=== PATIENT | male | born 1970 | race Hispanic/Latino ===

== ENCOUNTER 2017-09-24 21:49 | Inpatient (IN) | payer MEDICAID ==
[2017-09-24 22:19] LABS: BASO % 0.4 % (0.0-2.0); EOS # 0.2 K/uL (0.0-0.7); LYMPH % 36.7 % (20.0-40.0); MEAN CORPUSCULAR HEMOGLOBIN 31.3 pg (27.0-31.0); MEAN CORPUSCULAR HGB CONC 34.4 g/dL (33.0-37.0); MEAN PLATELET VOLUME 7.2 fL (7.2-11.7); MONO # 0.5 K/uL (0.0-0.8); MONO % 6.3 % (0.0-10.0); NEUT # 4.5 K/uL (1.8-7.0); NEUT % 54.6 % (50.0-75.0); NRBC % 0.1 % (0.0-2.0); RBC 4.17 Mil/uL (4.40-5.90); RED CELL DISTRIBUTION WIDTH 13.6 % (11.5-14.5); WHITE BLOOD COUNT 8.2 K/uL (4.8-10.8)
[2017-09-24 22:22] LABS: URINE BILIRUBIN NEGATIVE (NEGATIVE); URINE BLOOD NEGATIVE (NEGATIVE); URINE CLARITY Clear (Clear); URINE COLOR Yellow (YELLOW); URINE GLUCOSE (UA) NORMAL (Normal); URINE LEUKOCYTE ESTERASE NEG Leu/uL (Negative); URINE PROTEIN NEGATIVE (NEGATIVE); URINE UROBILINOGEN NORMAL mg/dL (0.2-1.0)
[2017-09-24 22:31] LABS: ALB/GLOB RATIO 1.4 (1.0-2.1); ALBUMIN 4.4 g/dL (3.5-5.0); ALT/SGPT 26 U/L (21-72); AST/SGOT 23 U/L (17-59); BLOOD UREA NITROGEN 17 mg/dL (9-20); CALCIUM 9.4 mg/dl (8.6-10.4); GFR AFRICAN-AMERICAN > 60; GFR NON-AFRICAN AMERICAN > 60
[2017-09-24 22:36] LABS: BARBITURATES, UR NEGATIVE (NEGATIVE); BENZODIAZEPINES, UR POSITIVE (NEGATIVE); OPIATES, UR POSITIVE (NEGATIVE); PHENCYCLIDINE, UR NEGATIVE (NEGATIVE)
--- NOTE | 2017-09-24 22:52 | C.PDOC ---
History Of Present Illness 47 year old male presents to the ED requesting methadone detox. Patient was prescreened prior to coming to the ED, patient states his last use of methadone was yesterday. Patient denies SI/HI, hallucinations, CP, SOB. Time Seen by Provider: 09/24/17 22:00 Chief Complaint (Nursing): Psychiatric Evaluation History Per: Patient History/Exam Limitations: no limitations Onset/Duration Of Symptoms: Days Current Symptoms Are (Timing): Still Present Suicide/Self Injury Attempted (Context): None Modifying Factor(s): Other (Methadone) Associated Symptoms: denies: Depression, Suicidal Thoughts, Suicidal Plan Involuntary Hold By: None Recent travel outside of the [place]: No Additional History Per: Patient Past Medical History Reviewed: Historical Data, Nursing Documentation, Vital Signs Vital Signs: Last Vital Signs Temp 98.2 F 09/25/17 20:00 Pulse 62 09/25/17 20:00 Resp 18 09/25/17 20:00 BP 118/72 09/25/17 20:00 Pulse Ox 97 09/25/17 20:00 - Medical History PMH: No Chronic Diseases Surgical History: No Surg Hx Family History: States: Unknown Family Hx - Social History Hx Alcohol Use: Yes Hx Substance Use: Yes (METHADONE) - Immunization History Hx Tetanus Toxoid Vaccination: Yes Hx Influenza Vaccination: No Review Of Systems Constitutional: Negative for: Fever, Chills Cardiovascular: Negative for: Chest Pain, Palpitations Respiratory: Negative for: Cough, Shortness of Breath Gastrointestinal: Negative for: Nausea, Vomiting Skin: Negative for: Rash Psych: Negative for: Depression, Suicidal ideation Physical Exam - Physical Exam Appears: Non-toxic, No Acute Distress Skin: Normal Color, Warm, Dry Head: Atraumatic, Normacephalic Eye(s): bilateral: Normal Inspection Oral Mucosa: Moist Neck: Normal ROM, Supple Chest: Symmetrical Cardiovascular: Rhythm Regular Respiratory: Normal Breath Sounds, No Rales, No Rhonchi, No Wheezing Gastrointestinal/Abdominal: Soft, No Tenderness, No Guarding, No Rebound Extremity: Normal ROM, No Tenderness, No Swelling Neurological/Psych: Oriented x3, Normal Speech Gait: Steady ED Course And Treatment - Laboratory Results Result Diagrams: 09/24/17 22:16 09/24/17 22:16 O2 Sat by Pulse Oximetry: 95 (ON RA) Pulse Ox Interpretation: Normal Medical Decision Making Medical Decision Making: Impression: methadone detox Plan: * Labs * UA * Crisis Disposition Doctor Will See Patient In The: Hospital Counseled Patient/Family Regarding: Studies Performed, Diagnosis - Disposition Disposition: HOSPITALIZED Disposition Time: 20:00 Condition: GOOD - Clinical Impression Clinical Impression: Polysubstance dependence including opioid type drug, episodic abuse - Scribe Statement The provider has reviewed the documentation as recorded by the Scribe Dayne Hadley All medical record entries made by the Scribe were at my direction and personally dictated by me. I have reviewed the chart and agree that the record accurately reflects my personal performance of the history, physical exam, medical decision making, and the department course for this patient. I have also personally directed, reviewed, and agree with the discharge instructions and disposition.
--- NOTE | 2017-09-25 00:27 | C.PDOC ---
Time Seen by Provider: 09/24/17 22:00 Chief Complaint (Nursing): Psychiatric Evaluation Past Medical History Vital Signs: Last Vital Signs Temp 98.6 F 09/24/17 21:53 Pulse 87 09/24/17 21:53 Resp 18 09/24/17 21:53 BP 131/85 09/24/17 21:53 Pulse Ox 95 09/24/17 21:53 - Social History Hx Alcohol Use: Yes Hx Substance Use: Yes (METHADONE) - Immunization History Hx Tetanus Toxoid Vaccination: Yes Hx Influenza Vaccination: No ED Course And Treatment - Laboratory Results Lab Interpretation: Abnormal (+ opiates, + THC, + methadone) O2 Sat by Pulse Oximetry: 95 - Physician Consult Information Outcome Of Conversation: 0030: d/w Crisis, ok to admit to Detox Medical Decision Making Medical Decision Making: polysubstance abuse Disposition Doctor Will See Patient In The: Hospital Counseled Patient/Family Regarding: Studies Performed, Diagnosis - Disposition Disposition: HOSPITALIZED Disposition Time: 00:28 Condition: GOOD - Clinical Impression Clinical Impression: Polysubstance dependence including opioid type drug, episodic abuse
--- NOTE | 2017-09-25 09:49 | PCM.BM ---
<Jonathan Schwartz - Last Filed: 09/25/17 09:48> Treatment assets and liabiliti Patient Assests: cooperative, motivated, ADL independent, good support system, negotiates basic needs, good interpersonal skills, strong chun Patient Liabilities: substance abuse - Milieu Protocol Maintain good personal hygiene: daily Encourage regular showers, daily Assist patient to perform ADL's, every shift Remind patient to perform daily oral care Maintain personal safety: every shift Educate patient to report safety concerns to staff, every shift Monitor environment for contraband/sharps Medication safety: Monitor for expected outcome, potential side effects: every shift, Assess barriers to learning: every shift, Assess readiness for medication education: every shift <Ana Santillan - Last Filed: 09/26/17 22:36> - Diagnosis (1) Opioid use disorder, severe, dependence Status: Acute Interventions: 09/26/17 22:36 * Assess 7x/week regarding severity of withdrawal * Educate regarding risks, benefits, side effects and alternatives of medications * Use Motivational Interviewing for abstinence * Use CBT for relapse prevention * Medication management for withdrawal symptoms * Encourage medication assisted treatment *
--- NOTE | 2017-09-25 10:27 | PCM.PSYCH ---
Initial Psychiatric Evaluation - Initial Psychiatric Evaluation Type of Admission: Voluntary Legal Status: Capacity Chief Complaint (in patient's own words): I need to stay sober History of Present Illness and Precipitating Events: Pt admitted for the detox treatment from methadone. Pt reported abusing 70mg of Methadone daily in 2 divided doses for the last two years. Pt reportedly sustained an injury to his wrist last year and was prescribed pain medication during an ED visit. Pt was later able to obtain Rx from his PCP who suspected that patient was abusing pain management medications that were later discontinued. Pt reported abusing xanax 1 mg po BID for last 2 months. He reproted methadone, and percocets on a regular basis for the last several years. He reported that he has opioid withdrawal symptoms ranging from headache,, nausea, vomiting, stomach cramp, hot and cold sweats, not able to function, and body aches. Pt stated that he smokes 1ppd for last 25 years. He has nicotine craving and ask for nicotine patch. Pt denied depressive, manic and anxiety symptoms. Social Hx: He is , has 3 children who are living with their mother. He works for [employer]. Current Medications: Active Medications Generic Name Dose Route Start Last Admin Trade Name Freq PRN Reason Stop Dose Admin Clonidine HCl 0.1 mg 09/25/17 00:33 Catapres PO Q8 PRN COWS Score More or Equal to 5 Ibuprofen 600 mg 09/25/17 00:33 Motrin Tab PO Q8H PRN Pain, moderate (4-7) Loperamide HCl 2 mg 09/25/17 00:33 Imodium PO Q8 PRN Diarrhea Multivitamins 1 tab 09/25/17 10:00 Hexavitamin PO DAILY HEIDI Ondansetron HCl 4 mg 09/25/17 00:33 Zofran Tab PO Q8 PRN Nausea/Vomiting Trazodone HCl 50 mg 09/25/17 00:34 Desyrel PO HS PRN Insomnia Past Psychiatric History - Past Psychiatric History Previous Treatment History: Inpatient At [facility] hospital: [facility] Duration: few days around 10 years ago Nature of Treatment: detox History of Abuse: denied History of ETOH/Drug Use: please see HPI. Pt denied using heroin, History of Family Illness: father was using heroin in past. He is clean for 15 years and working as Pertinent Medical Hx (Current Medical&Sleep Prob, Allergies): Allergies Allergy/AdvReac Type Severity Reaction Status Date / Time No Known Allergies Allergy Verified 09/24/17 21:58 No Known Home Med 09/24/17 Review of Systems - Review of Systems All systems: reviewed and no additional remarkable complaints except (HPI) Mental Status Examination - Personal Presentation Personal Presentation: Looks stated age, Dressed appropriate to season - Affect Affect: Constricted - Motor Activity Motor Activity: Calm - Reliability in Providing Information Reliability in Providing Information: Good - Speech Speech: Organized - Mood Mood: Anxious - Formal Thought Process Formal Thought Process: No Impairment - Hallucinations/Delusions Hallucinations: Other (denied) Delusions: Other (denied) - Obsessions/Compulsions Obsessions: None Compulsions: None - Cognitive Functions Orientation: Person, Place, Situation, Time Sensorium: Alert Attention/Concentration: Attentive Abstract Thinking: [place] Estimate of Intelligence: Average Judgement: Imparied, as evidence by: Lack of insight into illness, Intact, as evidence by: Good judgement Memory: Recent intact, as evidence by: Ability to recall events of the day - Risk Risk: Withdrawal - Strength & Assets Inventory Strength & Assets Inventory: Intelligence, Family support, Education, Employment status, Employment history, Skills, Life experience, Cooperative - Limitations Limitations: Other (chronic substance abuse) DSM 5 DX - DSM 5 DSM 5 Diagnosis: Opioid use disorder, severe, dependence Opioid withdrawal sedative/hypnotic use disorder, dependence Sedative/ hypnotic withdrawal - Recommended/Plan of Treatment Treatment Recommendations and Plan of Treatment: Librium detox Gabapentin for augmentation As needed meds and vitamins As needed meds for opioid withdrawal symptoms Attend groups and activities [place] for abstinence and CBT for relapse prevention Support and psychoeducation Consider and encourage MAT Refer to after care 33 min Projected ELOS: 5 days Prognosis: good Discharge Plan and Discharge Criteria: refer to after care plan
[2017-09-25] MEDS: Multiple Vitamins Tab PO SCH (11:00)
[2017-09-26] MEDS: Multiple Vitamins Tab PO SCH (09:30)
--- NOTE | 2017-09-26 13:42 | PCM.PYCHPN ---
Psychiatric Progress Note - Psychiatric Progress Note Patient seen today, length of contact: 19 min Patient Chief Complaint: "Not good" Problems Identified/Issues Discussed: The pt is seen, chart reviewed, case discussed with staff. The pt is compliant with medications and reports no side-effects. Symptoms are improving but needs more time to stabilize. After care discussed, support and psychoeducation given. Medication Change: Yes (detox changes daily) Medical Record Reviewed: Yes Mental Status Examination - Cognitive Function Orientation: Person, Place, Situation, Time Memory: Intact Attention: WNL Concentration: WNL Association: WNL Fund of Knowledge: WNL - Mood Mood: Anxious - Affect Affect: Constricted - Speech Speech: Appropriate - Formal Thought Process Formal Thought Process: No Impairment - Suicidal Ideation Suicidal Ideation: No - Homicidal Ideation Homicidal Ideation: No Goal/Treatment Plan - Goal/Treatment Plan Need for Continued Stay: Discharge may exacerbated symptoms, Severe functional impairment Progress Toward Problem(s) and Goals/Treatment Plan: Methadone detox As needed medications Gabapentin for augmentation if needed All risks, benefits and alternatives of medications, including no medications, discussed and the patient understood and agreed. Attend groups and activities Supportive therapy and psychoeducation [place] for abstinence CBT for relapse prevention Encourage MAT Refer to rehab or IOP Attend self-help groups as well [place] for smoking cessation and patch if needed
[2017-09-27] MEDS: Multiple Vitamins Tab PO SCH (09:42)
--- NOTE | 2017-09-27 17:33 | PCM.PYCHPN ---
Psychiatric Progress Note - Psychiatric Progress Note Patient seen today, length of contact: 15 minutes Patient Chief Complaint: I'm feeling much better. Problems Identified/Issues Discussed: Patient seen, chart reviewed, case discussed with the staff. Issues related to illness and treatment were discussed with the patient and staff. Reported compliant with treatment with no adverse affects. Tolerating treatment very well. Calm and cooperative. Reported feeling better. Status time of evaluation, patient was awake alert oriented 3, had no delusions , no auditory or visual hallucinations, no suicidal ideations or homicidal ideations. Diagnostic Results: Reviewed DSM 5 Symptoms Update: Some improvement with treatment Medication Change: No Medical Record Reviewed: Yes Mental Status Examination - Cognitive Function Orientation: Person, Place, Situation, Time Memory: Intact Attention: WNL Concentration: WNL Association: WN Fund of Knowledge: [facility] Decription of patient's judgement and insights: Fair - Mood Mood: Anxious (Much less than before) - Affect Affect: Other (Appropriate) - Speech Speech: Appropriate - Formal Thought Process Formal Thought Process: No Impairment Psychotic Thoughts and Behaviors: None - Suicidal Ideation Suicidal Ideation: No - Homicidal Ideation Homicidal Ideation: No Goal/Treatment Plan - Goal/Treatment Plan Need for Continued Stay: Remain at risks for inpatient hospitalization, Discharge may exacerbated symptoms, Severe functional impairment Progress Toward Problem(s) and Goals/Treatment Plan: Patient education. Supportive therapy. CBT for relapse prevention [place] for abstinence Continue treatment as before. Estimated Date of D/C: 10/03/17 - Smoking Cessation Smoking Cessation Initiated: Yes
[2017-09-28] MEDS: Multiple Vitamins Tab PO SCH (09:35)
--- NOTE | 2017-09-28 10:32 | PCM.PYCHPN ---
Psychiatric Progress Note - Psychiatric Progress Note Patient seen today, length of contact: 15 minutes Patient Chief Complaint: I'm feeling better Problems Identified/Issues Discussed: Pt was seen and evaluated. Chart reviewed and nurse inpt received. Pt reported he has some shakes and he is feeling nervous. He had no new complaints. He needs more time to stabilize. He is eating sleeping fine. Pt is compliant with medication and denied s/e Medication Change: Yes (medication taper daily) Medical Record Reviewed: Yes Mental Status Examination - Cognitive Function Orientation: Person, Place, Situation, Time Memory: Intact Attention: WNL Concentration: WNL Association: [facility] Fund of Knowledge: [facility] Decription of patient's judgement and insights: Good/good - Mood Mood: Anxious (Much less than before) - Affect Affect: Constricted - Speech Speech: Appropriate - Formal Thought Process Formal Thought Process: No Impairment Psychotic Thoughts and Behaviors: denied - Suicidal Ideation Suicidal Ideation: No Plan: denied - Homicidal Ideation Homicidal Ideation: No Plan: denied Goal/Treatment Plan - Goal/Treatment Plan Need for Continued Stay: Remain at risks for inpatient hospitalization, Discharge may exacerbated symptoms, Severe functional impairment Progress Toward Problem(s) and Goals/Treatment Plan: Librium detox Gabapentin for augmentation As needed meds and vitamins As needed meds for opioid withdrawal symptoms Attend groups and activities [place] for abstinence and CBT for relapse prevention Support and psychoeducation Consider and encourage MAT Refer to after care Estimated Date of D/C: 10/03/17 - Smoking Cessation Smoking Cessation Initiated: Yes
[2017-09-29] MEDS: Multiple Vitamins Tab PO SCH (09:19)
--- NOTE | 2017-09-29 14:38 | PCM.PYCHPN ---
Psychiatric Progress Note - Psychiatric Progress Note Patient seen today, length of contact: 15 minutes Patient Chief Complaint: I'm feeling much better. Problems Identified/Issues Discussed: Patient seen, chart reviewed, case discussed with the staff. Issues related to illness and treatment were discussed with the patient and staff. Reported compliant with treatment with no adverse affects. Tolerating treatment very well. Risk and benefits of medications were discussed with the patient patient understood and agreed. Reported feeling much better. Calm and cooperative, speech soft with good eye contact. Awake alert oriented 3, denied any delusions, any auditory of visual hallucinations, no suicidal ideations or homicidal ideations at the time of evaluation. Aftercare discussed with the patient. Medical Problems: None reported Diagnostic Results: Reviewed DSM 5 Symptoms Update: Improving with treatment Medication Change: No Medical Record Reviewed: Yes Mental Status Examination - Cognitive Function Orientation: Person, Place, Situation, Time Memory: Intact Attention: WNL Concentration: WNL Association: WN Fund of Knowledge: [facility] Decription of patient's judgement and insights: Fair - Mood Mood: Anxious (Much less than before) - Affect Affect: Other (Appropriate) - Speech Speech: Appropriate - Formal Thought Process Formal Thought Process: No Impairment Psychotic Thoughts and Behaviors: None - Suicidal Ideation Suicidal Ideation: No - Homicidal Ideation Homicidal Ideation: No Goal/Treatment Plan - Goal/Treatment Plan Need for Continued Stay: Remain at risks for inpatient hospitalization, Discharge may exacerbated symptoms, Severe functional impairment Progress Toward Problem(s) and Goals/Treatment Plan: Patient education. Supportive therapy. CBT for relapse prevention [place] for abstinence Continue treatment as before. Patient will go to [facility]. Estimated Date of D/C: 10/03/17 - Smoking Cessation Smoking Cessation Initiated: Yes
[2017-09-29] MEDS ORDERED: Magnesium Hydroxide Susp 30 ml UD PO ONE (21:00)
[2017-09-30] MEDS: Multiple Vitamins Tab PO SCH (09:26)
--- NOTE | 2017-09-30 19:55 | PCM.PYCHPN ---
Psychiatric Progress Note - Psychiatric Progress Note Patient seen today, length of contact: 15 minutes Patient Chief Complaint: I'm feeling much better. Problems Identified/Issues Discussed: Patient seen, chart reviewed, case discussed with the staff. Issues related to illness and treatment were discussed with the patient and staff. Reported compliant with treatment with no adverse affects. Tolerating treatment very well. Risk and benefits of medications were discussed with the patient patient understood and agreed. Reported feeling much better. Calm and cooperative, speech soft with good eye contact. Awake alert oriented 3, denied any delusions, any auditory of visual hallucinations, no suicidal ideations or homicidal ideations at the time of evaluation. Aftercare discussed with the patient. Medical Problems: None reported Diagnostic Results: Reviewed DSM 5 Symptoms Update: Improving with treatment. Medication Change: No Medical Record Reviewed: Yes Mental Status Examination - Cognitive Function Orientation: Person, Place, Situation, Time Memory: Intact Attention: WNL Concentration: WNL Association: [facility] Fund of Knowledge: [facility] Decription of patient's judgement and insights: Fair - Mood Mood: Anxious (Much less than before) - Affect Affect: Other (Appropriate) - Speech Speech: Appropriate - Formal Thought Process Formal Thought Process: No Impairment Psychotic Thoughts and Behaviors: None - Suicidal Ideation Suicidal Ideation: No - Homicidal Ideation Homicidal Ideation: No Goal/Treatment Plan - Goal/Treatment Plan Need for Continued Stay: Remain at risks for inpatient hospitalization, Discharge may exacerbated symptoms, Severe functional impairment Progress Toward Problem(s) and Goals/Treatment Plan: Patient education. Supportive therapy. CBT for relapse prevention [place] for abstinence Continue treatment as before. Patient will go to [facility] at [facility]. Estimated Date of D/C: 10/03/17 - Smoking Cessation Smoking Cessation Initiated: Yes
[2017-10-01] MEDS: Multiple Vitamins Tab PO SCH (09:31)
[2017-10-01 13:28] VITALS: RESP 18
--- NOTE | 2017-10-01 14:40 | PCM.PYCHPN ---
Psychiatric Progress Note - Psychiatric Progress Note Patient seen today, length of contact: 15 minutes Patient Chief Complaint: I'm feeling much better. Problems Identified/Issues Discussed: Patient seen, chart reviewed, case discussed with the staff. Issues related to illness and treatment were discussed with the patient and staff. Reported compliant with treatment with no adverse affects. Tolerating treatment very well. Risk and benefits of medications were discussed with the patient patient understood and agreed. Reported feeling much better. Calm and cooperative, speech soft with good eye contact. Awake alert oriented 3, denied any delusions, any auditory of visual hallucinations, no suicidal ideations or homicidal ideations at the time of evaluation. Aftercare discussed with the patient. Medical Problems: None reported Diagnostic Results: Reviewed DSM 5 Symptoms Update: Feeling much better Medication Change: No Medical Record Reviewed: Yes Mental Status Examination - Cognitive Function Orientation: Person, Place, Situation, Time Memory: Intact Attention: WNL Concentration: WNL Association: WN Fund of Knowledge: [facility] Decription of patient's judgement and insights: Fair - Mood Mood: Neutral - Affect Affect: Other (Appropriate) - Speech Speech: Appropriate - Formal Thought Process Formal Thought Process: No Impairment Psychotic Thoughts and Behaviors: None - Suicidal Ideation Suicidal Ideation: No - Homicidal Ideation Homicidal Ideation: No Goal/Treatment Plan - Goal/Treatment Plan Need for Continued Stay: Remain at risks for inpatient hospitalization, Discharge may exacerbated symptoms, Severe functional impairment Progress Toward Problem(s) and Goals/Treatment Plan: Patient education. Supportive therapy. CBT for relapse prevention [place] for abstinence Continue treatment as before. Patient will go to [facility] at [facility]. Estimated Date of D/C: 10/03/17 - Smoking Cessation Smoking Cessation Initiated: Yes
[2017-10-01 15:39] VITALS: BP 128/78; PULSE 74; TEMP 98.3; O2SAT 98
--- NOTE | 2017-10-02 19:15 | PCM.PYCHDC ---
Mental Status Examination - Mental Status Examination Orientation: Person, Place, Situation, Time Memory: Intact Mood: Neutral Affect: Other (Appropriate) Speech: Appropriate Attention: WNL Concentration: WNL Association: WNL Fund of Knowledge: WNL Formal Thought Process: No Impairment Description of patient's judgement and insight: Poor Psychotic Thoughts and Behaviors: None Suicidal Ideation: No Current Homicidal Ideation?: No Discharge Summary - Discharge Note Reason for Hospitalization: Opiate use disorder severe Anxiolytics use disorder severe Psychiatric History (includes Medical, Family, Personal Hx): detox Laboratory Data: Reviewed Consultations:: List each consultation separately and include: 1. Reason for request. 2. Findings. 3. Follow-up Summary of Hospital Course include:: 1. Description of specific treatment plan utilized for patients during their course of treatmen. 2. Summarize the time- course for resolution of acute symptoms and/or regressed behaviors. 3. Describe issues identified and worked on during hospitalization. 4. Describe medication utilized. 5. Describe medical problems identified and treated. 6. Reassessment of suicide risk Summary of Hospital Course: Pt admitted for the detox treatment from methadone. Pt reported abusing 70mg of Methadone daily in 2 divided doses for the last two years. Pt reportedly sustained an injury to his wrist last year and was prescribed pain medication during an ED visit. Pt was later able to obtain Rx from his PCP who suspected that patient was abusing pain management medications that were later discontinued. Pt reported abusing xanax 1 mg po BID for last 2 months. He reproted methadone, and percocets on a regular basis for the last several years. He reported that he has opioid withdrawal symptoms ranging from headache,, nausea, vomiting, stomach cramp, hot and cold sweats, not able to function, and body aches. Pt stated that he smokes 1ppd for last 25 years. He has nicotine craving and ask for nicotine patch. Pt denied depressive, manic and anxiety symptoms. Social Hx: He is , has 3 children who are living with their mother. He works for [employer]. During his stay in the hospital patient was treated with the methadone taper. Patient was started on other when necessary medications. Patient also started attending groups and other activities on the unit. With the above treatment patient started feeling better was tolerating treatment very well. Later patient decided to leave the hospital. Patient was educated about completion of detox. Patient was also educated that in case of manic hospital AGAINST MEDICAL ADVICE patient will be responsible for all of his actions including overdose, relapse, decompensation, or even . Patient understood and agreed but still refused to stay and left the hospital AGAINST MEDICAL ADVICE. At the time of evaluation and discharge, patient was awake alert oriented 3, had no delusions, no auditory or visual hallucinations, no suicidal ideations or homicidal ideations at the time of evaluation. Patient was discharged in a stable condition. - Final Diagnosis (DSM 5) Condition upon Discharge: GOOD Disposition: AGAINST MEDICAL ADVICE Follow-up Treatment Plan: Patient will go to [facility] at [facility]. - Smoking Cessation Smoking Cessation Medication prescribed: Yes - Antipsychotic Medications Pt discharged on 2 or more routine antipsychotic medications: No
== END 2017-10-01 20:44 | disposition left against medical advice (07) | DRG 743 ==
LOC: C.ER 21:49 → C.7D 09-25 00:28
PROVIDERS: ADMIT Psychiatry & Neurology Psychiatry; ATTEND Psychiatry & Neurology Psychiatry
PROC: HZ2ZZZZ Detoxification Services for Substance Abuse Treatment (ICD-10-PCS; principal; 2017-09-25)
PROC: HZ59ZZZ Individual Psychotherapy for Substance Abuse Treatment, Supportive (ICD-10-PCS; 2017-09-25)
PROC: HZ46ZZZ Group Counseling for Substance Abuse Treatment, Psychoeducation (ICD-10-PCS; 2017-09-25)
DX: F11.23 Opioid dependence with withdrawal (principal); F13.239 Sedative, hypnotic or anxiolytic dependence with withdrawal, unspecified; F17.210 Nicotine dependence, cigarettes, uncomplicated